=== PATIENT | male | born 1950 | race Caucasian/White ===

== ENCOUNTER 2016-06-27 18:28 | Emergency (ER) | payer OTHER ==
[2016-06-27 18:46] VITALS: BP 154/97; PULSE 94; RESP 16; TEMP 98.8; O2SAT 98
--- NOTE | 2016-06-27 19:50 | EDPHY ---
H & P Stated Complaint: Fell off massage table. Now pain in lower back and left wrist. Time Seen by Provider: 06/27/16 19:39 HPI/ROS: Chief complaint, back and left wrist pain status post fall HPI: 65-year-old male was sitting in a massage chair at [employer] when the chair fell backwards, he reached and fell on his outstretched left wrist and landed on his left back. This happened about 2 and 0.5 hours ago. Initially had some pain but states he is feeling significantly improved now. Does not have any history of prior injuries. No numbness or tingling. No weakness. Now states that he does not feel he needs any x-rays or further evaluation at this time. ROS: 10 point Review of Systems is negative except as noted in the HPI. Past medical history: Hypertension, hyperlipidemia Medications: Does not recall Allergies: No known drug allergies Physical exam: Gen: Awake, Alert, No Distress HEENT: Nose: no rhinorrhea Eyes: PERRLA, EOMI Mouth: Moist mucosa Neck: Supple, no JVD Chest: nontender, lungs clear to auscultation Heart: S1, S2 normal, no murmur Abd: Soft, non-tender, no guarding Back: no CVA tenderness, no midline tenderness no soft tissue tenderness, normal exam Ext: no edema, left wrist. He has no bony tenderness. He has no pain with pronation or supination. Has full range of motion without pain. Has no hand pain or tenderness. Sensations intact in the radial, median and ulnar nerve distribution. He has no elbow pain or tenderness. Has no shoulder pain or tenderness full range of motion. Skin: no rash Neuro: CN II-XII intact, Sensation grossly intact, Strength 5/5 in bilateral upper and lower extremities - Personal History Current Tetanus/Diphtheria Vaccine: Yes Current Tetanus Diphtheria and Acellular Pertussis (TDAP): Yes - Medical/Surgical History Hx Asthma: No Hx Chronic Respiratory Disease: No Hx Diabetes: No Hx Cardiac Disease: No Hx Renal Disease: No Hx Cirrhosis: No Hx Alcoholism: No Hx HIV/AIDS: No Hx Splenectomy or Spleen Trauma: No Other PMH: back surgery, HTN, Hypothyroid, Hypercholesterol - Social History Smoking Status: Current every day smoker Constitutional: Initial Vital Signs Temperature (C) 37.1 C 06/27/16 18:38 Heart Rate 94 06/27/16 18:38 Respiratory Rate 16 06/27/16 18:38 Blood Pressure 154/97 H 06/27/16 18:38 O2 Sat (%) 98 06/27/16 18:38 O2 Delivery Mode Room Air Allergies/Adverse Reactions: No Known Allergies Allergy (Unverified 06/27/16 18:37) Home Medications: Medication Instructions Recorded Lisinopril 06/27/16 SIMVASTATIN 06/27/16 Departure - Departure Disposition: Home, Routine, Self-Care Clinical Impression: Wrist sprain, Back pain Condition: Good Instructions: Wrist Sprain (ED), Back Pain (ED) Additional Instructions: Follow up with primary care physician in 3-4 days if symptoms are not improving. You may take ibuprofen and acetaminophen as needed for pain. Return emergency depart for increasing pain, numbness, tingling, headache, difficulty walking, or any other concerns. Referrals: DR MIC [Other] - As per Instructions Teodoro Fournier DO [Doctor of Osteopathy] - As per Instructions
== END 2016-06-27 19:56 | disposition home or self-care (01) ==
DX: S63.502A Unspecified sprain of left wrist, initial encounter (principal); S39.92XA Unspecified injury of lower back, initial encounter; I10 Essential (primary) hypertension; F17.200 Nicotine dependence, unspecified, uncomplicated; W08.XXXA Fall from other furniture, initial encounter; Y93.89 Activity, other specified

== ENCOUNTER 2016-10-22 07:57 | Observation (INO) | payer OTHER ==
--- NOTE | 2016-10-22 08:07 | CPEKG ---
Heart Rate: 94 RR Interval: 638 P-R Interval: 204 QRSD Interval: 84 QT Interval: 332 QTC Interval: 416 P Brandenburg: 36 QRS Brandenburg: 61 T Wave Brandenburg: -18 EKG Severity - ABNORMAL ECG - EKG Impression: SINUS RHYTHM EKG Impression: PROBABLE LEFT ATRIAL ABNORMALITY EKG Impression: CONSIDER ANTEROSEPTAL INFARCT EKG Impression: NONSPECIFIC T ABNORMALITIES, INFERIOR LEADS Electronically Signed By: Kt Schreiber 22-Oct-2016 16:10:36
[2016-10-22] MEDS ORDERED: ASPIRIN 81 MG CHEWABLE TAB ONE (08:08)
--- NOTE | 2016-10-22 08:11 | EDPHY ---
H & P Time Seen by Provider: 10/22/16 08:09 HPI/ROS: Chief complaint. Chest pain HPI. 66-year-old male presents with chest discomfort that began at 3:00 a.m.. It is described as anterior sharp and tight radiating through to his back. Some shortness of breath. Increased sharpness with deep breathing. His pain is worse with movement and exertion. 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 He still has discomfort though he says is better now just slight tightness. No fever cough. No unusual leg pain or swelling. No abdominal pain. No similar symptoms previously ROS Constitutional. no fever/chills, no weakness Eyes. no problems with vision ENT. no sore throat, no nasal drainage Cardiovascular. Chest pain Respiratory. Shortness of breath Abdominal. no abdominal pain, no nausea/vomiting, no diarrhea . no problems urinating MS. no calf pain/swelling, no neck/back pain, no joint pain Skin. no rash Lymph. no swollen glands Neuro. no headache, no dizziness, no difficulty walking or with speech Past Medical/Surgical History: Past medical history is significant for back surgery, hypertension, dyslipidemia , hypothyroid, cancer of tongue No family history of early coronary artery disease Social History: Single, nonsmoker, no alcohol Smoking Status: Former smoker Physical Exam: General Appearance: Alert well-developed male mild distress vital signs significant for heart rate 105 Eyes: Pupils equal and round no pallor or injection. ENT, Mouth: Mucous membranes are moist. Respiratory: There are no retractions, lungs are clear to auscultation. Cardiovascular: Regular rate and rhythm. Gastrointestinal: Abdomen is soft and nontender, no masses, bowel sounds normal. Neurological: Awake and alert, sensory and motor exams grossly normal. Skin: Warm and dry, no rashes. Musculoskeletal: Neck is supple nontender. Extremities symmetrical, full range of motion. Psychiatric: Patient is oriented X 3, there is no agitation. Constitutional: Initial Vital Signs Temperature (C) 36.7 C 10/22/16 07:57 Heart Rate 105 H 10/22/16 07:57 Respiratory Rate 18 10/22/16 07:57 Blood Pressure 177/78 H 10/22/16 07:57 O2 Sat (%) 94 10/22/16 07:57 O2 Delivery Mode Room Air O2 (L/minute) 2 Allergies/Adverse Reactions: No Known Allergies Allergy (Verified 10/22/16 08:02) Home Medications: Medication Instructions Recorded Simvastatin [Zocor] 20 mg PO HS 06/27/16 Levothyroxine [Synthroid 175 mcg 175 mcg PO DAILY06 10/22/16 (*)] Lisinopril [Zestril 5 mg (*)] 5 mg PO HS 10/22/16 Terazosin HCl [Hytrin 2 MG (*)] 2 mg PO HS 10/22/16 Medical Decision Making - Diagnostics EKG Interpretation: EKG interpreted by me shows normal sinus rhythm normal interval and axis. QRS is normal. There is T-wave inversion inferiorly. No significant ST elevation or depression. No arrhythmia. Rate 90 Imaging Results: Imaging Impressions Chest X-Ray 10/22/16 08:14 Impression: Cardiomegaly with mild perihilar bronchial wall thickening and right basilar diskoid subsegmental atelectasis. Chest x-ray interpreted by me consistent with cardiomegaly but no evidence for pneumonia or pneumothorax Procedures: IV normal saline, monitor, aspirin in the emergency department ED Course/Re-evaluation: Re-evaluation 9:30 a.m.. Patient and I discussed laboratory and imaging studies. We discussed treatment plan including recommendation for admission. Patient expresses understanding and agreement I consulted and discussed case with hospitalist, who agrees to the admission Differential Diagnosis: I have considered acute coronary syndrome, unstable angina, pulmonary embolus, pneumothorax and pneumonia - Data Points Laboratory Results: Laboratory Results 10/22/16 08:10 10/22/16 08:10 10/22/16 10/22/16 10/22/16 08:10 08:10 08:07 WBC 10.08 10^3/uL H 10^3/uL (3.80-9.50) RBC 6.32 10^6/uL 10^6/uL (4.40-6.38) Hgb 17.5 g/dL g/dL (13.7-17.5) POC Hgb 18.7 gm/dL H gm/dL (13.7-17.5) Hct 52.3 % H % (40.0-51.0) POC Hct 55 % H % (40-51) MCV 82.8 fL fL (81.5-99.8) MCH 27.7 pg L pg (27.9-34.1) MCHC 33.5 g/dL g/dL (32.4-36.7) RDW 13.6 % % (11.5-15.2) Plt Count 192 10^3/uL 10^3/uL (150-400) MPV 10.5 fL fL (8.7-11.7) Neut % (Auto) 79.7 % H % (39.3-74.2) Lymph % (Auto) 10.4 % L % (15.0-45.0) Bradford % (Auto) 8.4 % % (4.5-13.0) Eos % (Auto) 0.7 % % (0.6-7.6) Baso % (Auto) 0.4 % % (0.3-1.7) Nucleat RBC Rel Count 0.0 % % (0.0-0.2) Absolute Neuts (auto) 8.03 10^3/uL H 10^3/uL (1.70-6.50) Absolute Lymphs (auto) 1.05 10^3/uL 10^3/uL (1.00-3.00) Absolute Monos (auto) 0.85 10^3/uL H 10^3/uL (0.30-0.80) Absolute Eos (auto) 0.07 10^3/uL 10^3/uL (0.03-0.40) Absolute Basos (auto) 0.04 10^3/uL 10^3/uL (0.02-0.10) Absolute Nucleated RBC 0.00 10^3/uL 10^3/uL (0-0.01) Immature Gran % 0.4 % % (0.0-1.1) Immature Gran # 0.04 10^3/uL 10^3/uL (0.00-0.10) POC Sodium 142 mEq/L mEq/L (134-144) Sodium 139 mEq/L mEq/L (134-144) POC Potassium 4.6 mEq/L mEq/L (3.3-5.0) Potassium 4.7 mEq/L mEq/L (3.5-5.2) POC Chloride 104 mEq/L mEq/L (97-110) Chloride 104 mEq/L mEq/L (97-110) Carbon Dioxide 22 mEq/l mEq/l (22-31) Anion Gap 13 mEq/L mEq/L (8-16) POC BUN 24 mg/dL H mg/dL (7-23) BUN 21 mg/dL mg/dL (7-23) Creatinine 0.9 mg/dL mg/dL (0.7-1.3) POC Creatinine 0.8 mg/dL mg/dL (0.7-1.3) Estimated GFR > 60 Glucose 110 mg/dL H mg/dL (70-100) POC Glucose 112 mg/dL H mg/dL (70-100) Calcium 9.7 mg/dL mg/dL (8.5-10.4) Troponin I < 0.012 ng/mL ng/mL (0.000-0.034) Medications Given: Metoprolol Tartrate (Lopressor) 12.5 mg PO BID LEIGH Stop: 04/20/17 14:44 Last Admin: 10/22/16 15:11 Dose: 12.5 mg Discontinued Medications Aspirin (Aspirin) 324 mg PO EDNOW ONE Stop: 10/22/16 08:14 Last Admin: 10/22/16 08:15 Dose: 324 mg Perflutren Lipid Microsphere (Definity) 1.1 mg IV ONCE ONE Stop: 10/22/16 13:01 Last Admin: 10/22/16 13:10 Dose: Not Given Point of Care Test Results: 10/22/16 08:07 POC Sodium 142 POC Potassium 4.6 POC Chloride 104 POC BUN 24 H POC Creatinine 0.8 POC Glucose 112 H Departure - Departure Disposition: [facility] Inpatient Acute Clinical Impression: Chest pain Qualifiers: Chest pain type: unspecified Qualified Code(s): R07.9 - Chest pain, unspecified Condition: Fair
[2016-10-22] MEDS ORDERED: ASPIRIN 325 MG TAB PO ONE (08:13)
[2016-10-22 08:19] LABS: % IMMATURE GRANULYOCYTES 0.4 % (0.0-1.1); ABSOLUTE IMMATURE GRANULOCYTES 0.04 10^3/uL (0.00-0.10); ADD DIFF? NO; ADD MORPH? NO; ADD SCAN? NO; ATYPICAL LYMPHOCYTE FLAG 0 (0-99); FRAGMENT RBC FLAG 0 (0-99); HEMATOCRIT 52.3 % (40.0-51.0); HEMOGLOBIN 17.5 g/dL (13.7-17.5); LEFT SHIFT FLG 0 (0-99); LIPEMIA HEMOLYSIS FLAG 80 (0-99); MEAN CELL HEMOGLOBIN 27.7 pg (27.9-34.1); MEAN CELL HEMOGLOBIN CONCENTR. 33.5 g/dL (32.4-36.7); MEAN CELL VOLUME 82.8 fL (81.5-99.8); MEAN PLATELET VOLUME 10.5 fL (8.7-11.7); PLATELET CLUMPS FLAG 10 (0-99); PLATELET COUNT 192 10^3/uL (150-400); RED BLOOD CELL COUNT 6.32 10^6/uL (4.40-6.38); RED CELL DISTRIBUTION WIDTH 13.6 % (11.5-15.2)
[2016-10-22 08:30] LABS: ANION GAP 13 mEq/L (8-16); CALCIUM 9.7 mg/dL (8.5-10.4); CARBON DIOXIDE 22 mEq/l (22-31); CHLORIDE 104 mEq/L (97-110); CREATININE 0.9 mg/dL (0.7-1.3); GLOMERULAR FILTRATION RATE > 60; GLUCOSE 110 mg/dL (70-100); POTASSIUM 4.7 mEq/L (3.5-5.2); SODIUM 139 mEq/L (134-144)
[2016-10-22 08:41] LABS: TROPONIN I < 0.012 ng/mL (0.000-0.034)
[2016-10-22] MEDS ORDERED: ONDANSETRON 4 MG/2 ML VIAL IVP PRN (12:00)
[2016-10-22] MEDS ORDERED: ACETAMINOPHEN 325 MG TAB PO PRN (12:00)
[2016-10-22] MEDS ORDERED: ONDANSETRON DISINTEGRATING 4 MG TAB PO PRN (12:00)
[2016-10-22] MEDS ORDERED: NITROGLYCERIN 0.4 MG BTL SL PRN (12:07)
[2016-10-22] MEDS ORDERED: PERFLUTREN LIPID MICROSPHERES 1.1 MG/ML VIAL IV ONE (13:00)
--- NOTE | 2016-10-22 13:25 | CPEKG ---
Heart Rate: 74 RR Interval: 811 P-R Interval: 204 QRSD Interval: 88 QT Interval: 336 QTC Interval: 373 P Amberson: 41 QRS Amberson: 62 T Wave Amberson: 14 EKG Severity - ABNORMAL ECG - EKG Impression: SINUS RHYTHM EKG Impression: PROBABLE LEFT ATRIAL ABNORMALITY EKG Impression: CONSIDER ANTEROSEPTAL INFARCT Electronically Signed By: Teodoro Meade 22-Oct-2016 21:57:19
[2016-10-22] MEDS: METOPROLOL TARTRATE 25 MG TAB PO SCH ×2 (15:11→21:08)
--- NOTE | 2016-10-22 15:21 | GHP ---
[f rep st] HISTORY AND PHYSICAL DATE OF ADMISSION: 10/22/2016 CHIEF COMPLAINT: Chest pain. HISTORY OF PRESENT ILLNESS: The patient is a 66-year-old male with a history of hypertension, hyper lipidemia, and obesity, who presents to the emergency department with chest pain. He states he woke at 3 o'clock this morning with tightness in his chest, which radiated to his back. This was associ ated with some shortness of breath. He denies radiation of the pain. He had no associated nausea o r diaphoresis. 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 While exerting himself, manipulating a wheel chair, he again developed chest tightness, also associated with some shortness of breath. Still no radiation, nausea or diaphoresis. His symptoms are improved at this time, tho ugh he still does note some vague tightness. He denies fever or cough. He has had no recent travel , no lower extremity swelling. CARDIAC RISK FACTORS: Include hypertension, hyperlipidemia, age and gender. He denies family histo ry of premature heart disease. He is not a diabetic. He has no tobacco history. The patient is admitted to the hospital for further evaluation. PAST MEDICAL HISTORY: 1. Hypertension. 2. Hyperlipidemia. 3. Obesity. 4. History of tongue cancer. 5. Hypothyroidism. PAST SURGICAL HISTORY: He has had prior back surgery. A tongue mass removed, followed by radiation . MEDICATIONS: Please see [employer] for complete updated outpatient medication list. ALLERGIES: No known drug allergies. SOCIAL HISTORY: The patient lives independently. 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 He has a history of marijuana use, but quit 15 years ago, after he developed tongue cancer. He is a l ifetime nonsmoker of tobacco. He reports infrequent alcohol use. FAMILY HISTORY: There is no family history of premature heart disease. Family history is reviewed and is otherwise noncontributory. REVIEW OF SYSTEMS: A 10-point review of systems was performed and is negative except as per HPI. OBJECTIVE: VITAL SIGNS: Temperature is 36.4, blood pressure 140/88, heart rate 92, respiratory rat e 18, he is 91% on room air. GENERAL: The patient is awake, alert, oriented, in no acute distress. HEENT: Head is atraumatic, normocephalic. Pupils equal, round, react to light. Extraocular musc les intact. Oropharynx clear. Mucous members are moist. NECK: Supple. There is no JVD. HEART: Regular rate and rhythm without murmur. LUNGS: Clear to auscultation bilaterally. ABDOMEN: Soft , nondistended, nontender. Normoactive bowel sounds. EXTREMITIES: Without cyanosis, clubbing, or edema. NEUROLOGIC: Grossly nonfocal. LABORATORY DATA: CBC reveals a white count of 10, hemoglobin 17.5, hematocrit 52.3, platelets are n ormal at 192. D-dimer is negative. Basic metabolic panel shows normal electrolytes, normal renal f unction, with a creatinine of 0.9, blood sugar 110. He has had 2 negative troponins, greater than 4 hours apart. EKG: Initial EKGs, personally reviewed and interpreted, shows normal sinus rhythm. He has some nikole nsloping ST segments with T-wave inversions in the inferior leads. Q-waves in lead V1 and V2. Othe rwise, no ST-segment elevation. Repeat EKG, again shows normal sinus rhythm. Slightly improved T-w ave changes in the inferior leads. Persistent Q-waves in V1 and V2. Overall, no significant change from prior, if not a bit improved. Chest x-ray performed in the emergency department shows cardiomegaly with some perihilar bronchial w all thickening, and probable atelectasis. ASSESSMENT AND PLAN: The patient is a 66-year-old male with a history of hypertension, hyperlipidem ia, who presents to the emergency department with chest pain. 1. Chest pain. This is exertional and given his EKG changes, somewhat concerning for angina, howev er, it is reassuring his troponins are negative x2. I do note his Q-waves in V1 and V2. An echocar diogram was ordered to evaluate for wall motion abnormality. The patient is kept n.p.o. at this galen e, pending his echo results. If this is reassuring, we will continue to trend his troponins, and he will likely undergo stress test. I will review the case with Cardiology. He has received a full-d ose aspirin. We will continue daily aspirin and a statin. We will also add a low dose of metoprolo l, and check a lipid panel in the morning. 2. Hypertension. The patient is normotensive on arrival. We will continue his outpatient lisinopr il. 3. Hyperlipidemia. We will continue his statin, and a lipid panel is pending for the morning. 4. Hypothyroidism. We will check a TSH, and continue his outpatient levothyroxine. CODE STATUS: Patient is full code. Deep vein thrombosis prophylaxis. We will place SCDs for now, as I do not anticipate a prolonged ho spitalization, though should he remain hospitalized, we will consider Lovenox. DISPOSITION: Patient is admitted to observation status. /[id number]/MODL
--- NOTE | 2016-10-22 15:54 | ECHO ---
[id number] + + [address] : : [place] [id number] : : [phone] + + Adult Echocardiographic Report + + :Name: GREGORY CHASE Date: 10/22/2016 12:26 PM : : Hospital Admission Number: [id number] Lo cation: 223: :: 1950 Gender: Male Height: 75 in : :Age: 66 yrs Race: WH Weight: 30 9 lb : :Reason For Study: Eval LV Fx : : BSA: 2.6 m eters2 : :History: Chest Pain/Pressure, Abnormal EKG : + + MMode/2D Measurements \T\ Calculations IVSd: 1.1 cm LVIDd: 4.3 cm FS: 36.0 % Ao root diam: 3.0 cm LVPWd: 1.4 cm LVIDs: 2.8 cm EDV(Teich): 84.5 ml ACS: 2.2 cm ESV(Teich): 28.8 ml EF(Teich): 65.9 % Normal Measurement Values: + + :LVIDd (3.5-5.7cm) IVSd (0.6-1.1cm) LVPWd (0.6-1.1cm) Aortic Root (2.0-3.7cm)Left Atrium (1.5-4.0cm): :LV Vol(d) (76-115ml) LV Vol(s) (29-48ml) Ejec Fraction (50-65%)PV Keny (0.6- 1.2m/s) TV Keny (0.4-1.0m/s) : :MV E Keny (0.8-1.0m/s)MV A Keny (0.3-1.0m/s)LVOT Keny (0.7-1.2m/s) Asc Ao Keny ( 0.9-1.8m/s) : + + Doppler Measurements \T\ Calculations MV E max keny: Ao V2 max: LV V1 max: PA V2 max: 71.1 cm/sec 107.2 cm/sec 97.2 cm/sec 96.4 cm/sec MV A max keny: Ao max P.6 mmHg LV V1 max PG: PA max P.1 cm/sec 3.8 mmHg 3.7 mmHg MV E/A: 0.97 Left Ventricle The left ventricle is normal in size. There is mild concentric left ventricular hypertrophy. The left ventricular ejection fraction is normal. There is Doppler evidence for diastolic dysfunction. Ejection Fraction = 70%. The left ventricle is hyperdynamic. Right Ventricle The right ventricle is normal in size and function. Atria The left atrial size is normal. Right atrial size is normal. Mitral Valve The mitral valve is normal in structure and function. There is no evidence of mitral valve prolapse. There is no mitral valve stenosis. There is no mitral regurgitation noted. Tricuspid Valve The tricuspid valve is normal in structure and function. No tricuspid regurgitation. Aortic Valve The aortic valve is normal in structure and function. There is no aortic stenosis. There is no aortic insufficiency. Pulmonic Valve The pulmonic valve is normal in structure and function. There is no pulmonic valvular regurgitation. Great Vessels The aortic root is normal size. Pericardium/Pleural There is no pericardial effusion. Conclusion A complete two-dimensional transthoracic echocardiogram was performed (2D, M-mode, Doppler and color flow Doppler). There is mild concentric left ventricular hypertrophy. The left ventricular ejection fraction is normal. There is Doppler evidence for diastolic dysfunction. Ejection Fraction = 70%. The left ventricle is hyperdynamic. The right ventricle is normal in size and function. The left atrial size is normal. The mitral valve is normal in structure and function. The tricuspid valve is normal in structure and function. The aortic valve is normal in structure and function. There is no pericardial effusion. Final Reading Physician: Placido Kim signed on 10/22/2016 03:53 PM Ordering Physician: Chika Hernandez Performed By: Rory Sykes, CS
[2016-10-22] MEDS ORDERED: KETOROLAC 30 MG/1 ML SDV IVP ONE (16:00)
[2016-10-22 19:43] LABS: SEDIMENTATION RATE 6 MM/HR (0-20)
--- NOTE | 2016-10-22 20:01 | GCON ---
[f rep st] CONSULTATION CARDIOLOGY CONSULTATION DATE OF CONSULTATION: 10/22/2016 REFERRING PHYSICIAN: Chika Hernandez MD REASON FOR CONSULTATION: We were asked by Dr. Chika Hernandez to evaluate the patient for his chest p ain. HISTORY OF PRESENT ILLNESS: The patient is a 66-year-old male with a history of hypertension, dysli pidemia, previous tongue cancer, status post radiation therapy, who reports onset of chest pain at 3 a.m. This awoke him from his sleep. He noted a sharp anterior midsternal chest pain that radiated into his back. He had some associated shortness of breath. He noted some worsening with position changes, as well as taking a deep breath. Symptoms somewhat subsided, and he was able to get to [facility]. He left his house at 5 a.m. and went to hot die picker a client in [place]. 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 He arrived in [place] and proceeded to the strap his c lient into the van and noted that bending over made his discomfort worse. He then drove to [place] and on his drive back to [place] he noted some severe midsternal respirophasic discomfort. He rate s it a 6.5/10 with associated shortness of breath. He denies any associated nausea, diaphoresis, or presyncope. He notes that he has never had any discomfort like this previously. He admits to no r egular exercise but has been trying to lose weight with diet. He has had no recent viral symptoms. FAMILY HISTORY: Both his parents are alive at age 95 and 90. His father has a pacer, and his mothe r has Alzheimer's dementia. SOCIAL HISTORY: Patient is single. He reports former marijuana use for 30 years. He denies any al cohol intake. PAST MEDICAL HISTORY: 1. Hypertension. 2. Dyslipidemia. 3. Hypothyroidism. 4. History of tongue cancer, status post radiation therapy. 5. 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 6. History of 3 rib fractures after his horse kicked him in the chest. PAST SURGICAL HISTORY: Neck and back surgery, as well as appendectomy. REVIEW OF SYSTEMS: As per HPI. A complete 10-point review of systems was obtained and is negative except for what is dictated in the HPI. MEDICATIONS: Outpatient medications include Hytrin, lisinopril, levothyroxine, simvastatin. ALLERGIES: No known drug allergies. PHYSICAL EXAMINATION: VITAL SIGNS: BP of 140/88, heart rate 92, respirations 18, O2 saturation 91% on room air, temp of 97.6 degrees Fahrenheit. GENERAL: He is a very pleasant male, in no apparent distress. HEENT: Head is normocephalic atraumatic. Eyes are VELIA. Mucous membranes moist. NECK: Supple with no JVD. HEART: Regular rate and rhythm with distant heart sounds with no rubs, kirk ps, or murmurs. LUNGS: Clear to auscultation. ABDOMEN: Obese. Nontender. SKIN: Warm and dry. PSYCH: Normal mood and affect for given situation. NEURO: No focal deficits detected. LABORATORY DATA: BMP with sodium 142, potassium 4.6 chloride 104, CO2 of 22, BUN 21, creatinine 0.9 , glucose of 110. Troponins negative x2. D-dimer 0.38. WBC 10.8, hemoglobin 18.7, hematocrit 52.3 , platelet count of 192. DIAGNOSTIC DATA: A 12-lead ECG from 10/22/2016 at 12 p.m. shows sinus rhythm with a first-degree AV block, slow R-wave transition, diffuse ST-T wave abnormalities, and probable left atrial abnormalit y. A 12-lead ECG from 10/22/2016 at 8 a.m. personally interpreted demonstrates sinus rhythm with a left first-degree AV block, left atrial abnormality, slow transition, and ST-T wave abnormalities wi th T-wave inversions inferiorly. Chest x-ray shows cardiomegaly with bronchial wall thickening and discoid subsegmental atelectasis. I spoke with Dr. Hernandez and Dr. Smyth about patient's care. IMPRESSION AND PLAN: The patient is a 66-year-old male, who presents with chest discomfort. 1. Chest discomfort. This is atypical for angina. Likely etiology is inflammatory possibly perica rditis versus pleuritis. We will plan to check ESR and CRP. He will be started on Toradol for infl ammation. Given his risk factors and abnormal ECG, we will also plan to obtain a treadmill stress t est for further risk stratification. 2. Hypertension. He is managed with lisinopril and Hytrin for his blood pressure. This may be nee d to be modified as an outpatient given his hypertension in the hospital setting. 3. Dyslipidemia. Labs have been ordered to recheck his lipids. /[id number]/MODL
--- NOTE | 2016-10-22 20:02 | CPEKG ---
Heart Rate: 86 RR Interval: 698 P-R Interval: 200 QRSD Interval: 88 QT Interval: 340 QTC Interval: 407 P Taylor: 56 QRS Taylor: 80 T Wave Taylor: 22 EKG Severity - ABNORMAL ECG - EKG Impression: SINUS RHYTHM EKG Impression: CONSIDER ANTEROSEPTAL INFARCT EKG Impression: ST ELEVATION SUGGESTS PERICARDITIS Electronically Signed By: Teodoro Meade 22-Oct-2016 21:57:37
[2016-10-22] MEDS ORDERED: LISINOPRIL 5 MG TAB PO SCH (21:00)
[2016-10-22] MEDS ORDERED: NON-FORMULARY NEW DRUG (Simvastatin [Zocor] 20 MG) PO SCH (21:00)
[2016-10-22] MEDS ORDERED: TERAZOSIN HCL 2 MG CAP PO SCH (21:00)
[2016-10-22] MEDS ORDERED: ATORVASTATIN CALCIUM 10 MG TAB PO SCH (21:00)
[2016-10-22] MEDS: KETOROLAC 15 MG/1 ML SDV IVP SCH (21:09)
[2016-10-23] MEDS: KETOROLAC 15 MG/1 ML SDV IVP SCH ×2 (04:16→10:45)
[2016-10-23 05:07] LABS: CHOLESTEROL 113 mg/dL (140-220); HIGH DENSITY LIPOPROTEIN 29 mg/dL (40-65); LDL/HDL RATIO 2.31 RATIO (1.00-3.64); LOW DENSITY LIPOPROTEIN 67 mg/dL (80-100); NON-HIGH DENSITY LIPOPROTEIN 84 mg/dL (90-129); TRIGLYCERIDE 89 mg/dL (40-150); VERY LOW DENSITY LIPOPROTEINS 17 mg/dL (8-25)
[2016-10-23] MEDS ORDERED: LEVOTHYROXINE 175 MCG TAB PO SCH (06:00)
[2016-10-23 07:15] VITALS: O2SAT 90
[2016-10-23] MEDS ORDERED: ASPIRIN 81 MG CHEWABLE TAB PO SCH (09:00)
[2016-10-23] MEDS ORDERED: REGADENOSON 0.4 MG/5 ML SYR IVP ONE (09:13)
[2016-10-23] MEDS: METOPROLOL TARTRATE 25 MG TAB PO SCH (10:51)
[2016-10-23] MEDS ORDERED: PNEUMOC 13-VAL CONJ-DIP CRM/PF 0.5 ML SYR IM ONE (11:03)
--- NOTE | 2016-10-23 11:49 | PDCARST ---
CAR Stress Test Results Type of Stress Test: Nuclear TM stress test Indication: cp Description of Procedure: After informed consent was obtained, pt was exercised according to [facility]zah Protocol. Monitoring was performed with standard stress testing lead electrode placement. Vital signs were monitored according to protocol throughout the procedure. STRESS EKG AND HEMODYNAMIC DATA. Exercise time: 5 min. This is equivalent to: 6.1 METS. Resting heart rate: 97 bpm. Resting blood pressure: 102/64 mmHg. Resting O2 saturation: 93%. Peak heart rate: 140 bpm. This is 90 % of age predicted maximum heart rate response. Peak blood pressure: 150/80 mmHg. Exercise O2: 91%. Arrhythmias : occ PVCs at rest, occ PVCs with exertion, and occasional PVCs in recovery. Reason for termination: The test was stopped due to target HR/maximal effort. Symptoms: The patient experienced no typical symptoms of angina during stress or recovery. STRESS TEST ANALYSIS. Baseline ECG: SR with inf Twi. Stress ECG : mild worsening of b/l abnormality. exercise induced ischemic ECG changes: No. Rhythm: PVCs noted during exercise and recovery. Blood pressure: Normal blood pressure response to exercise. Exercise tolerance: The patient has average exercise tolerance adjusted for age and gender. Symptoms: No exercise induced symptoms. Impression: IMPRESSIONS: Stress ECG equivocal for ischemia. This is an equivocal study due to baseline ECG abnormality. Conclusion: Await nuclear images.
[2016-10-23 12:34] VITALS: BP 125/66; PULSE 66; RESP 20; TEMP 97.6
--- NOTE | 2016-10-23 21:24 | GDS ---
[f rep st] DISCHARGE SUMMARY DISCHARGE DIAGNOSES: 1. Pericarditis. 2. Hypertension. 3. Hyperlipidemia. CONSULTANTS: GLENN Perrin. Cardiology nurse practitioner. IMAGING STUDIES AND PROCEDURES: 1. Echocardiogram October 22 showed a normal left ventricular ejection fraction of 70% with Dopple r evidence for diastolic dysfunction. No significant valve disease and no pericardial effusion. 2. Nuclear medicine myocardial perfusion scan October 23 again showed a normal left ventricular ej ection fraction of 76% with no focal wall motion abnormalities and no evidence of ischemia or infarc t. HISTORY: For details, please see the history and physical dated October 22, 2016. In brief, the pat tim is a 66-year-old male with a history of hypertension and hyperlipidemia, who presents to the em ergency department with chest pain. He was admitted to the hospital for further evaluation. HOSPITAL COURSE: The patient was admitted to the cardiac telemetry unit. He was noted have an abno rmal EKG with T-wave inversions in the inferior leads. In addition, there was some mild TR elevatio n noted in lead aVR and some mild ST elevations in the anterior leads suggestive of pericarditis. A s above, his nuclear medicine stress test was negative for ischemia. He had negative troponins. He was given a dose of IV Toradol, and his symptoms completely resolved. It is suspected his chest pa in is not ischemic in nature and is more likely related to a pericarditis. He is discharged on an o ral anti-inflammatory regimen along with proton pump inhibitor for prophylaxis, and he is instructed to follow up with Dr. Sharron Cartwright in 1-2 weeks. DISCHARGE MEDICATIONS: 1. Ibuprofen 600 mg p.o. t.i.d. #60 no refills. 2. Protonix 40 mg p.o. daily #30 no refills. He will continue all other outpatient medications as prescribed includin. Simvastatin 20 mg. 2. Levothyroxine 175 mg. 3. Lisinopril 5 mg. 4. Terazosin 2 mg. FOLLOWUP: Follow up with Dr. Sharron Cartwright at [facility] in 1-2 weeks. /[id number]/MODL
== END 2016-10-23 13:45 | disposition home or self-care (01) ==
LOC: INTOOBSV 09:41 → F2W 10:54
PROVIDERS: ADMIT Hospitalist; ATTEND Hospitalist
DX: I31.9 Disease of pericardium, unspecified (principal); I10 Essential (primary) hypertension; E78.5 Hyperlipidemia, unspecified
CPT/HCPCS: 71020; 78452; 90670; 93005; 93017; 93306; 99285; A9500; G0009; G0378; J1885; Q9957; 82947-QW; 84481-90; J2785